=== PATIENT | female | born 1955 | race Caucasian/White ===

== ENCOUNTER → 2018-11-22 14:32 | Outpatient (CLI) | payer OTHER, SELFPAY ==
--- NOTE | 2018-11-22 | DI.MG.S_ITS ---
BILATERAL DIGITAL SCREENING MAMMOGRAM 3D/2D WITH CAD: 11/22/2018 CLINICAL: Routine screening. Family history of breast cancer. Comparison is made to exams dated: 09/06/2016 mammogram, 07/18/2015 mammogram, 02/04/2014 mammogram, and 05/24/2012 mammogram - [facility]. There are scattered fibroglandular elements in both breasts. Current study was also evaluated with a Computer Aided Detection (CAD) system. There is a mole marker on the right breast. No significant masses, calcifications, or other findings are seen in either breast. There has been no significant interval change. IMPRESSION: NEGATIVE There is no mammographic evidence of malignancy. A 1 year screening mammogram is recommended. This exam was interpreted at Station ID: [id number]. NOTE: For mammograms, a report in lay terms will be sent to the patient. Approximately 15% of breast malignancies will not be visualized mammographically. In the management of a palpable breast mass, a negative mammogram must not discourage biopsy of a clinically suspicious lesion. Electronically Signed By: Lino kelly/elias:11/23/2018 18:22:15 letter sent: Normal Exam ACR BI-RADS Category 1: Negative 3341F
== END ==
PROVIDERS: Visit Provider Internal Medicine
DX: Z13.21 Encounter for screening for nutritional disorder (principal)
CPT/HCPCS: 77063; 77067

== ENCOUNTER → 2020-01-02 14:36 | Outpatient (CLI) | payer OTHER, SELFPAY ==
--- NOTE | 2020-01-02 | DI.MG.S_ITS ---
BILATERAL DIGITAL SCREENING MAMMOGRAM 3D/2D WITH CAD: 01/02/2020 CLINICAL: Routine screening. Family history of breast cancer. Comparison is made to exams dated: 11/22/2018 mammogram - [facility], 09/06/2016 mammogram, and 07/18/2015 mammogram - [facility]. There are scattered fibroglandular elements in both breasts. Current study was also evaluated with a Computer Aided Detection (CAD) system. There is a mole marker on the right breast. No significant masses, calcifications, or other findings are seen in either breast. There has been no significant interval change. IMPRESSION: NEGATIVE There is no mammographic evidence of malignancy. A 1 year screening mammogram is recommended. This exam was interpreted at Station ID: [id number]. NOTE: For mammograms, a report in lay terms will be sent to the patient. Approximately 15% of breast malignancies will not be visualized mammographically. In the management of a palpable breast mass, a negative mammogram must not discourage biopsy of a clinically suspicious lesion. Electronically Signed By: Freddie Rutherford M.D., jr/elias:01/02/2020 14:55:07 letter sent: Normal Exam ACR BI-RADS Category 1: Negative 3341F
== END ==
PROVIDERS: PCP Internal Medicine; Referring Provider Internal Medicine; Visit Provider Internal Medicine
DX: Z12.31 Encounter for screening mammogram for malignant neoplasm of breast (principal); Z80.3 Family history of malignant neoplasm of breast
CPT/HCPCS: 77063; 77067

== ENCOUNTER → 2021-01-22 11:25 | Outpatient (CLI) | payer OTHER, SELFPAY ==
--- NOTE | 2021-01-22 | DI.MG.S_ITS ---
BILATERAL DIGITAL SCREENING MAMMOGRAM 3D/2D WITH CAD: 01/22/2021 CLINICAL: Routine screening. Family history of breast cancer. Comparison is made to exams dated: 01/02/2020 mammogram, 11/22/2018 mammogram - [facility], and 09/06/2016 mammogram - [facility]. There are scattered fibroglandular elements in both breasts. Current study was also evaluated with a Computer Aided Detection (CAD) system. There is a mole marker on the right breast. No significant masses, calcifications, or other findings are seen in either breast. There has been no significant interval change. IMPRESSION: NEGATIVE There is no mammographic evidence of malignancy. A 1 year screening mammogram is recommended. This exam was interpreted at Station ID: [id number]. NOTE: For mammograms, a report in lay terms will be sent to the patient. Approximately 15% of breast malignancies will not be visualized mammographically. In the management of a palpable breast mass, a negative mammogram must not discourage biopsy of a clinically suspicious lesion. Electronically Signed By: Andrey Frias acr/penrad:01/22/2021 13:36:48 letter sent: Normal Exam ACR BI-RADS Category 1: Negative 3341F
== END ==
PROVIDERS: PCP Internal Medicine; Referring Provider Internal Medicine; Visit Provider Internal Medicine
DX: Z12.31 Encounter for screening mammogram for malignant neoplasm of breast (principal); Z80.3 Family history of malignant neoplasm of breast
CPT/HCPCS: 77063; 77067

== ENCOUNTER → 2022-01-13 15:08 | Outpatient (CLI) | payer OTHER, SELFPAY ==
--- NOTE | 2022-01-13 | DI.MG.S_ITS ---
BILATERAL DIGITAL SCREENING MAMMOGRAM 3D/2D WITH CAD: 01/13/2022 CLINICAL: Routine screening. Family history of breast cancer. Comparison is made to exams dated: 01/22/2021 mammogram, 01/02/2020 mammogram, and 11/22/2018 mammogram - [facility]. There are scattered areas of fibroglandular density in both breasts (category b / 25%-50% glandular tissue). Current study was also evaluated with a Computer Aided Detection (CAD) system. There is an oval equal density focal asymmetry in the left breast central to the nipple middle depth. No other significant masses, calcifications, or other findings are seen in either breast. IMPRESSION: INCOMPLETE: NEEDS ADDITIONAL IMAGING EVALUATION The oval equal density focal asymmetry in the left breast most likely is a cyst or an intramammary node and is indeterminate. Additional views with possible ultrasound are recommended. Based on the Tyrer Cuzick model (a risk assessment model) the patient's lifetime risk is 10.9% and her 10 year risk is 5.1%. According to the ACR, ACS, and NCCN guidelines, an annual breast MRI exam along with mammogram is recommended if the patient's lifetime risk is 20% or greater. This exam was interpreted at Station ID: [id number]. NOTE: For mammograms, a report in lay terms will be sent to the patient. Approximately 15% of breast malignancies will not be visualized mammographically. In the management of a palpable breast mass, a negative mammogram must not discourage biopsy of a clinically suspicious lesion. Electronically Signed By: Freddie Rutherford M.D., jr/elias:01/14/2022 12:21:00 letter sent: Additional Imaging Needed ACR BI-RADS Category 0: Incomplete 3340F
== END ==
PROVIDERS: PCP Internal Medicine; Referring Provider Internal Medicine; Visit Provider Internal Medicine
DX: Z12.31 Encounter for screening mammogram for malignant neoplasm of breast (principal); Z80.3 Family history of malignant neoplasm of breast
CPT/HCPCS: 77063; 77067

== ENCOUNTER → 2022-02-15 08:40 | Outpatient (CLI) | payer OTHER, SELFPAY ==
--- NOTE | 2022-02-15 | DI.US.S_ITS ---
LIMITED ULTRASOUND OF LEFT BREAST: 02/15/2022 CLINICAL: Patient returns today to evaluate an asymmetry in the left breast. Comparison is made to exams dated: 02/15/2022 mammogram, 01/13/2022 mammogram, 01/22/2021 mammogram, 01/02/2020 mammogram, and 11/22/2018 mammogram - [facility]. Color flow ultrasound of the left breast 3-5 o'clock region was performed. Dominguez scale images of the real-time examination were reviewed. There is a 0.5 cm x 0.8 cm x 0.4 cm oval cyst with a septated internal wall in the left breast at 4 o'clock middle depth 5 cm from the nipple. This oval cyst is anechoic and hypoechoic with posterior acoustic enhancement. This correlates with mammography findings. IMPRESSION: PROBABLY BENIGN The 0.5 cm x 0.8 cm x 0.4 cm oval cyst in the left breast is consistent with a complicated cyst and is probably benign. A follow-up left ultrasound in 6 months is recommended to demonstrate stability. This exam was interpreted at Station ID: [id number]. Electronically Signed By: Rafael hood/elias:02/15/2022 13:08:02 letter sent: Followup Recommended Ultrasound BI-RADS: 3 Probably benign
--- NOTE | 2022-02-15 | DI.MG.S_ITS ---
UNILATERAL LEFT DIGITAL DIAGNOSTIC MAMMOGRAM 3D/2D WITH ADDITIONAL VIEWS: 02/15/2022 CLINICAL: Additional evaluation requested from prior study. Comparison is made to exams dated: 01/13/2022 mammogram, 01/22/2021 mammogram, 01/02/2020 mammogram, and 11/22/2018 mammogram - [facility]. There are scattered areas of fibroglandular density in the left breast (category b / 25%-50% glandular tissue). There is an oval equal density focal asymmetry with an obscured and circumscribed margin in the left breast at 4 o'clock middle depth. This is seen in additional views. No other significant masses or calcifications are seen in the breast. IMPRESSION: INCOMPLETE: NEEDS ADDITIONAL IMAGING EVALUATION The oval equal density focal asymmetry in the left breast most likely is a cyst or an intramammary node and is indeterminate. An ultrasound is recommended. Based on the Tyrer Cuzick model (a risk assessment model) the patient's lifetime risk is 10.9% and her 10 year risk is 5.1%. According to the ACR, ACS, and NCCN guidelines, an annual breast MRI exam along with mammogram is recommended if the patient's lifetime risk is 20% or greater. This exam was interpreted at Station ID: [id number]. NOTE: For mammograms, a report in lay terms will be sent to the patient. Approximately 15% of breast malignancies will not be visualized mammographically. In the management of a palpable breast mass, a negative mammogram must not discourage biopsy of a clinically suspicious lesion. Electronically Signed By: Rafael hood/elias:02/15/2022 13:06:10 ACR BI-RADS Category 0: Incomplete 3340F
== END ==
PROVIDERS: PCP Internal Medicine; Referring Provider Internal Medicine; Visit Provider Internal Medicine
DX: R92.8 Other abnormal and inconclusive findings on diagnostic imaging of breast (principal); N60.02 Solitary cyst of left breast
CPT/HCPCS: 76642; 77065; G0279

== ENCOUNTER → 2022-08-20 12:42 | Outpatient (CLI) | payer OTHER, SELFPAY ==
--- NOTE | 2022-08-20 | DI.US.S_ITS ---
ULTRASOUND OF LEFT BREAST: 08/20/2022 CLINICAL: 6 month follow up. Comparison is made to exams dated: 02/15/2022 ultrasound, 02/15/2022 mammogram, and 01/13/2022 mammogram - [facility]. Color flow and real-time ultrasound of the left breast were performed. Dominguez scale images of the real-time examination were reviewed. There is a 0.5 cm x 0.7 cm x 0.6 cm oval cyst with a thin septated internal wall versus two adjacent cysts in the left breast at 4 o'clock middle depth 5 cm from the nipple. This oval cyst is anechoic and hypoechoic with posterior acoustic enhancement. This abnormality is not significantly changed and correlates with mammography findings. IMPRESSION: PROBABLY BENIGN The 0.5 cm x 0.7 cm x 0.6 cm oval cyst in the left breast is consistent with a complicated cyst versus cluster of cysts and is probably benign. A follow-up bilateral mammogram and a left ultrasound in 6 months is recommended to demonstrate stability. Findings and recommendations were conveyed to the patient during today's evaluation. This exam was interpreted at Station ID: [id number]. Electronically Signed By: Roe Wolff M.D. aty/:08/20/2022 13:31:30 letter sent: Followup Recommended Ultrasound BI-RADS: 3 Probably benign
== END ==
PROVIDERS: PCP Internal Medicine; Referring Provider Internal Medicine; Visit Provider Internal Medicine
DX: R92.8 Other abnormal and inconclusive findings on diagnostic imaging of breast (principal)
CPT/HCPCS: 76642

== ENCOUNTER → 2023-02-22 10:08 | Outpatient (CLI) | payer OTHER, SELFPAY ==
--- NOTE | 2023-02-22 10:10 | DI.MG.S_ITS ---
BILATERAL DIGITAL DIAGNOSTIC MAMMOGRAM 3D/2D SHORT-TERM FOLLOW-UP: 02/22/2023 CLINICAL: Short term follow up, due david. Comparison is made to exams dated: 02/15/2022 mammogram, 01/13/2022 mammogram, 01/22/2021 mammogram, and 01/02/2020 mammogram - [facility]. There are scattered areas of fibroglandular density in both breasts (category b / 25%-50% glandular tissue). There is a stable oval focal asymmetry in the left breast at 4 o'clock middle depth. No other significant masses, calcifications, or other findings are seen in either breast. IMPRESSION: INCOMPLETE: NEEDS ADDITIONAL IMAGING EVALUATION The stable oval focal asymmetry in the left breast is indeterminate. An ultrasound is recommended. Based on the Tyrer Cuzick model (a risk assessment model) the patient's lifetime risk is 10.5% and her 10 year risk is 5.1%. According to the ACR, ACS, and NCCN guidelines, an annual breast MRI exam along with mammogram is recommended if the patient's lifetime risk is 20% or greater. This exam was interpreted at Station ID: [id number]. NOTE: For mammograms, a report in lay terms will be sent to the patient. Approximately 15% of breast malignancies will not be visualized mammographically. In the management of a palpable breast mass, a negative mammogram must not discourage biopsy of a clinically suspicious lesion. Electronically Signed By: Jyoti Allison M.D. lk/:02/22/2023 10:55:53 ACR BI-RADS Category 0: Incomplete 3340F
--- NOTE | 2023-02-22 10:10 | DI.US.S_ITS ---
LIMITED ULTRASOUND OF LEFT BREAST AND AXILLA: 02/22/2023 CLINICAL: Patient returns today to evaluate an asymmetry in the left breast. Comparison is made to exams dated: 02/22/2023 mammogram, 08/20/2022 ultrasound, 02/15/2022 ultrasound, 02/15/2022 mammogram, 01/13/2022 mammogram, and 01/22/2021 mammogram - [facility]. Color flow ultrasound of the left breast axilla was performed on the areas of interest. Dominguez scale images of the real-time examination were reviewed. There is a stable 0.5 cm x 0.7 cm x 0.6 cm oval cyst in the left breast at 4 o'clock middle depth 5 cm from the nipple. This correlates with mammography findings. IMPRESSION: BENIGN There is no sonographic evidence of malignancy. The stable 0.5 cm x 0.7 cm x 0.6 cm oval cyst in the left breast is consistent with a simple cyst and is benign. Return to annual mammogram screening schedule is recommended. This exam was interpreted at Station ID: [id number]. Electronically Signed By: Jyoti chavarria/:02/22/2023 11:27:47 letter sent: Normal Exam Ultrasound BI-RADS: 2 Benign
== END ==
PROVIDERS: PCP Internal Medicine; Referring Provider Internal Medicine; Visit Provider Internal Medicine
DX: R92.8 Other abnormal and inconclusive findings on diagnostic imaging of breast (principal); N64.89 Other specified disorders of breast; N60.02 Solitary cyst of left breast
CPT/HCPCS: 76642; 77066; G0279